=== PATIENT | male | born 1955 | race Caucasian/White ===

== ENCOUNTER 2018-04-03 13:08 | Emergency (ER) | payer BC ==
[~2018-04-03] VITALS: Ht 165.1 cm; Wt 91.1 kg
[~2018-04-03 13:08] MED LIST: GLIPIZIDE5 MG PO; METFORMIN HCL1000 MG PO; SYNTHROID200 MCG PO
[2018-04-03] MEDS ORDERED: AUGMENTIN875 MG PO (15:29)
[2018-04-03 17:20] VITALS: BP 134/82
== END 2018-04-03 17:20 | disposition home or self-care (01) ==
LOC: EME 13:08
PROC: 3E0234Z Introduction of Serum, Toxoid and Vaccine into Muscle, Percutaneous Approach (ICD-10-PCS; principal; 2018-04-03)
DX: S61.232A Puncture wound without foreign body of right middle finger without damage to nail, initial encounter (principal); W55.01XA Bitten by cat, initial encounter; Z23 Encounter for immunization
CPT/HCPCS: 73140; 99281; 99283